=== PATIENT | female | born 1985 | race Caucasian/White ===

== ENCOUNTER 2025-01-04 10:18 | Outpatient (AMB) | payer OTHER, SELFPAY ==
--- NOTE | 2025-01-04 10:21 | A.OFFPC_ITS ---
Vital Signs 01/04/25 10:29 Height 5 ft 6.93 in Weight 171 lb 4 oz BMI 26.9 BP 114/86 Blood Pressure Location Rt brachial Position Sitting Respiration 16 Pulse 64 Pulse Source Pulse Oximeter Temp 98 F Temp Source Oral Pulse Oximetry (%) 98 Oxygen Delivery Method Room Air Intake Visit Reasons: Dermatologic condition- Referral Spot on Skin Intake Note: establish care and have a spot on nail and its getting bigger and left thumb. Penetration Tester Required: No Accompanied by: Self / Same As Patient Allergies No Known Allergies Allergy (Verified 01/04/25 10:21) Medication List - Last Reconciled 01/04/25 by Aris Stanford MD No Known Home Meds Tobacco use date assessed: 01/04/25 Dental Screening Dental Screen Date: 01/04/25 Did you have a dental visit in the last 12 months?: Yes Did you have a dental problem in the last 6 months where you did not have access to dental care?: No Was dental information given to patient?: Patient has dentist HPI HPI Comments History of Present Illness Details History of Present Illness The patient is a 39-year-old female presenting with nail discoloration. Nail Discoloration: - The patient noticed a spot on her nail that has been growing and changing, causing concern. - There is no known family history of sk in cancer, although the patient's mother's side is described as sickly. - The patient has not visited a doctor i n a long time and is anxious about the nail changes. Hip Pain: - The patient reports hip pain that occu rs when sitting in certain positions, described as a tightness. - The pain has been present for about a year and has worsened over time. - The patient has attempted stretching e xercises without relief. Menstrual Irregularities: - The patient reports increased spotting before menstruation and suspects perimenopause. - Menstrual flow varies, with some month s being heavier than others. Health Maintenance - Blood tests: CBC, CMP, lipid panel, ST D screening, hepatitis B and C screen, HIV screen - Cervical cancer screening: Pap smear r ecommended every five years Review of Systems - Dermatological: Reports nail discolora tion - Musculoskeletal: Reports hip pain when sitting in certain positions - Reproductive: Reports increased spotti ng before menstruation, denies heavy bleeding 10-point ROS reviewed and negative excep t as noted in HPI Current Substance Use - Denies smoking and alcohol use Family History - No known family history of skin cancer - No known family history of breast or c olon cancer Social History - Marital status: since 2012 - Children: Two daughters, ages 11 and 1 3 Physical Exam General: No apparent distress. Alert and oriented x 3. Head: Normocephalic, atraumatic Eyes: Pupils equal, round, and reactive to light. Extraocular movements intact Throat: Oropharynx clear. No lesions. ropharynx clear. Mucus membranes moist Neck: Supple. No lymphadenopathy. eft anterior descending artery distention. No jugular vein distention. No bruit. Cardiovascular: Regular rate and rhythm. Normal S1 and S2. No murmurs. murmurs, rubs, or gallops Lungs: Clear to auscultation bilaterally. Breath sounds equal bilaterally. No rales, ronchi, or wheezes. Abdomen: Non-tender. Non-distended. Bowel sounds auscultated. No masses. hepatosplenomegaly. No mass/rebound/guarding Extremities: No cyanosis, clubbing, or edema.clubbing, cyanosis, and edema. 2+ pulses Neuro: Cranial nerves II-XII grossly intact. Motor/sensory intact. Reflexes 2+. Gait normal. Skin: Warm, dry, and intact. No rash. Noted discoloration on the nail. Discussion Notes I discussed the patient's nail discoloration and the potential causes, including mineral deficiencies. I recommended a referral to dermatology for further evaluation. We also discussed the importance of routine blood tests and cervical cancer screening. The patient was advised to follow up with the technician's helper and to consider a Pap smear for cervical cancer screening. Plan 1. Other nail disorders L60.8 - Referral to dermatology for further ev aluation of nail discoloration. - Blood tests to check for mineral defic iencies, including CBC, CMP, and calcium levels. 2. Pain in right hip M25.551 - Provided literature on stretching exer cises to alleviate hip pain. 3. Irregular menstruation, unspecified N92.6 - Discussed the possibility of perimenop ause and advised monitoring symptoms. Treatment Summary Anticapatory Guidance Patient Instructions - Follow up with the technician's helper for n ail discoloration evaluation. - Complete the recommended blood tests, including CBC, CMP, and calcium levels. - Consider scheduling a Pap smear for ce rvical cancer screening. - Review and practice the provided stret kilo exercises for hip pain relief. [facility] Family History (Updated 01/04/25 @ 10:29 by Courtney Hope MA) Father No problems noted. Mother No problems noted. Social History (Updated 01/04/25 @ 10:29 by Courtney Hope MA) Housing: House Alcohol intake: current Alcohol intake frequency: does not drink Patient Tobacco Use Status: Never used Tobacco service: No Current occupational status: employed Cognitive needs: No Hearing needs: No Vision needs: Yes (rx glasses/ contacts) Questionnaire PHQ-9 Over the last 2 weeks, how often have you been bothered by any of the following problems? 1. Little interest or pleasure in doing things: not at all 2. Feeling down, depressed, or hopeless: not at all 3. Trouble falling or staying asleep, or sleeping too much: several days 4. Feeling tired or having little energy: several days 5. Poor appetite or overeating: not at all 6. Feeling bad about yourself - or that you are a failure or have let yourself or your family down: not at all 7. Trouble concentrating on things, such as reading the newspaper or watching television: not at all 8. Moving or speaking so slowly that other people could have noticed. Or the opposite - being so fidgety or restless that you have been moving around a lot more than usual: not at all 9. Thoughts that you would be better off or of hurting yourself in some way: not at all Total score: 2 Source: Developed by Drs. Laureano Brown, Soco Villanueva, Jerry Nichols and colleagues, with an educational keisha from [employer]. Thrive Questionnaire Date Thrive assessed: 01/04/25 I am a: Patient What is your living situation today?: I have a steady place to live Within the past 12 months, did the food you bought not last and you didn't have the money to get more?: Never true Within the past 12 months, did you worry whether your food would run out before you got money to buy more?: Never true Do you have trouble paying for medicines?: No Do you have trouble getting transportation to medical appointments?: No Do you have trouble paying your heating and electricity bill?: No Do you have trouble taking care of your child, family member or friend?: No Do you have trouble with day-to-day activities such as bathing, preparing meals, shopping, managing finances, etc.?: No Are you currently unemployed and looking for a job?: No Are you interested in more education?: No Please select the resources that you would like help with: None Currently or been in a relationship where the following occur: No concerns reported THRIVE Score: 0 AUDIT C Alcohol Use Questionnaire (AUDIT-C) 1. How often do you have a drink containing alcohol?: Never 3. How often do you have six or more drinks on one occasion?: Never Total Score: 0 LULA-7 AMB Questionnaire LULA-7 Date LULA - 7 assessed: 01/04/25 Feeling nervous, anxious, or on edge: 0 = Not at all Not being able to stop or control worryin = Not at all Worrying too much about different things: 1 = Several days Trouble relaxin = Not at all Being so restless that it is hard to sit still: 0 = Not at all Becoming easily annoyed or irritable: 1 = Several days Feeling afraid as if something awful might happen: 0 = Not at all Total LULA-7 score (0-4 normal; 5-9 mild; 10-14 moderate; 15-21 severe): 2 Source: Developed by Drs. Laureano Brown, Soco Villanueva, Jerry Nichols and colleagues, with an educational keisha from [employer]. Physical exam (Primary Care) Vital Signs: Last Vital Signs Temp 98 F 01/04/25 10:29 Pulse 64 01/04/25 10:29 Resp 16 01/04/25 10:29 BP 114/86 01/04/25 10:29 Pulse Ox 98 01/04/25 10:29 Oxygen Delivery Method Room Air 01/04/25 10:29 BMI result Body Mass Index 26.9 Tobacco/Smoking Status: Tobacco use Status Tobacco use date assessed 01/04/25 01/04/25 10:34 Patient Tobacco Use Status Never used Tobacco 01/04/25 10:34 PHQ-9: PHQ-9 Score PHQ-9: Total score 2 01/04/25 10:34 Thrive Assessment: Date of Thrive Assessment Date Thrive assessed 01/04/25 01/04/25 10:34 Currently or been in a relationship where the following occur: No concerns reported Coding Level of Care Code New Pt Level 3 (83976) Diagnoses Encounter to establish care Z76. Routine lab draw Z01.89 Hypertension screen Z13.6 Screening for HIV (human immunodeficiency virus) Z11.4 Routine screening for STI (sexually transmitted infection) Z11.3 Screening for diabetes mellitus Z13.1 Screening for lipoid disorders Z13.220 Overweight (BMI 25.0-29.9) E66.3 Nail abnormality L60.9 Assessment & Plan Assessment & Plan (1) Encounter to establish care: Code(s): Z76.89 - Persons encountering health services in other specified circumstances (2) Routine lab draw: Code(s): Z01.89 - Encounter for other specified special examinations (3) Hypertension screen: Code(s): Z13.6 - Encounter for screening for cardiovascular disorders (4) Screening for HIV (human immunodeficiency virus): Code(s): Z11.4 - Encounter for screening for human immunodeficiency virus [HIV] (5) Routine screening for STI (sexually transmitted infection): Code(s): Z11.3 - Encounter for screening for infections with a predominantly sexual mode of transmission (6) Screening for diabetes mellitus: Code(s): Z13.1 - Encounter for screening for diabetes mellitus (7) Screening for lipoid disorders: Code(s): Z13.220 - Encounter for screening for lipoid disorders (8) Overweight (BMI 25.0-29.9): Code(s): E66.3 - Overweight (9) Nail abnormality: Code(s): L60.9 - Nail disorder, unspecified Plan Orders: Orders Complete Blood Count Auto Diff Today Z76. - Persons encountering health services in other specified circumstances Comprehensive Met. Panel Today Z76. - Persons encountering health services in other specified circumstances Hemoglobin A1c Today 76. - Persons encountering health services in other specified circumstances Hepatitis B Surface Antigen Today . - Persons encountering health services in other specified circumstances Chlamydia Species Ab Panel Today . - Persons encountering health services in other specified circumstances CT NG by PCR Urine Today Z. - Persons encountering health services in other specified circumstances Syphilis Screen Today . - Persons encountering health services in other specified circumstances Vitamin B12 and Folate Today Z76.89 - Persons encountering health services in other specified circumstances Hepatitis B Surface Antibody Today Z76.89 - Persons encountering health services in other specified circumstances Hepatitis C Antibody Today Z76.89 - Persons encountering health services in other specified circumstances HIV Ab/Ag Today Z76.89 - Persons encountering health services in other spec ified circumstances Lipid Panel Today Z76.89 - Persons encountering health services in other specified circumstances UA CC w/rflx Micro + Cult Today Z76.89 - Persons encountering health services in other specified circumstances Vitamin D 1,25 dihydroxy Today Z76.89 - Persons encountering health services in other specified circumstances Referrals Dermatology Referral L60.9 - Nail disorder, unspecified
[2025-01-04 10:29] VITALS: BP 114/86; PULSE 64; RESP 16; TEMP 36.6; O2SAT 98; BMI 26.9
--- OUTSIDE RECORDS SUMMARY | 2025-01-04 11:45 | XMS_ITS | Patient Health Record ---
Author Organization [facility] Address [address] [place] [address] Care Team Providers Care Pharmaceutical Physician Name Role Phone Krysten Coker Unavailable [phone] Reason For Referral No Information Social History Tobacco Use: Social History Observation Description Date Details (start date - stop date) Former Smoker NA - NA Tobacco Use/Smoking Question Answer Notes Are you a former smoker How long has it been since you last smoked? 1-5 years Alcohol Screen (Audit-C) Question Answer Notes Did you have a drink containing alcohol in the p ast year? No Points 0 Interpretation Negative Plan Of Treatment No Information Insurance Providers Payer Name Payer Address Payer Phone Subscriber Number Group Number Insured Name Patient Relationship to Insured Coverage Start Date Coverage End Date [facility] [address] [place] [address] [id number] JENNIE GARCIA Self - patient is the insured Medical (General) History Surgical History Surgery Date(Month/Year) Hospitalization History Reason Date(Month/Year) Childbirth
== END 2025-01-04 11:00 | disposition home or self-care (01) ==
LOC: HO.HMCFMS 10:18
PROVIDERS: PCP Student in an Organized Health Care Education/Training Program; Visit Provider Student in an Organized Health Care Education/Training Program
DX: E66.3 Overweight (principal); L60.9 Nail disorder, unspecified

== ENCOUNTER 2025-01-04 10:18 | Outpatient (REF) | payer OTHER, SELFPAY ==
[2025-01-04 18:03] LABS: Appearance Urine Clear; Glucose Urine UA Negative (Negative); PH 6.5 (5.0-9.0); Specific Gravity - Urine <= 1.005 (1.005-1.025)
[2025-01-04 18:21] LABS: Hematocrit 42.0 % (37.0-47.0); Hemoglobin 14.2 g/dl (12.0-16.0); Imm Gran Abs Auto 0.01 X10*3/uL (0.00-0.03); Imm Gran Pct Auto 0.2 % (0.0-0.4); Lymphocytes Absolute Auto 1.8 X10*3/uL (1.2-4.9); MANUAL DIFF FLAG NO; Mean Corpuscular HGB Conc 33.8 g/dl (31.0-35.0); Mean Corpuscular Hemoglobin 31.8 pg (27.0-33.0); Mean Corpuscular Volume 94.0 fL (80.0-98.0); NRBC Abs Auto 0.000 X10*3/uL (0.0-0.012); NRBC Pct Auto 0.0 /100WBC (0.0-0.2); Platelet Count 250 X10*3/uL (160-400); Red Blood Count 4.47 X10*6/uL (4.20-5.50); White Blood Count 6.4 X10*3/uL (4.8-10.8)
[2025-01-04 18:37] LABS: Hemoglobin A1C 113.6609 umol/L
[2025-01-04 18:40] LABS: Alanine Aminotransferase 16 U/L (0-31); Albumin Level 4.9 g/dL (3.5-5.0); Alkaline Phosphatase 31 U/L (39-117); Anion Gap 13 (12-20); Aspartate Amino Transferase 33 U/L (5-31); Blood Urea Nitrogen 22 mg/dL (9-16); Calcium 9.5 mg/dL (8.4-10.2); Carbon Dioxide 25 mmol/L (22-29); Chloride 105 mmol/L (96-108); Cholesterol 188 mg/dL (<200); Estimated Glomerular Filt Rate > 60; HDL Cholesterol 73 mg/dL (>40); Potassium 4.4 mmol/L (3.3-5.1); Sodium 139 mmol/L (135-145); Total Protein 7.5 g/dL (6.5-8.0); Triglycerides 44 mg/dL (<150)
[2025-01-04 19:12] LABS: Folate 17.7 ng/mL (> or = 4.0); Vitamin B12 581 pg/mL (200-900)
[2025-01-04 23:20] LABS: CT PCR Urine NOT DETECTED (Not Detect.); NG PCR Urine NOT DETECTED (Not Detect.)
[2025-01-05 09:22] LABS: Syphilis Screen Nonreactive (Nonreactive)
[2025-01-05 09:50] LABS: HBS Num1 101.32 mIU/mL (0-7.99); HBsAGNum1 0.37 S/CO (0.00-0.99); HIV Num 1 0.04 S/CO (0.00-0.99); Hepatitis B Surface Antigen Negative (Negative); ~HepC Num1 0.06 S/CO (0.00-0.79); ~Hepatitis B Surface Antibody REACTIVE (Nonreactive); ~Hepatitis C Antibody Nonreactive (Nonreactive)
[2025-01-09 19:09] LABS: Chlamydia Trachomatis IgA <1:16 titer (<1:16)
[2025-01-14 11:58] LABS: VITAMIN D (1,25 OH) D3 58 pg/mL; Vit D (1,25-Dihydroxy) Total 58 pg/mL (18-72); Vitamin D (1,25 OH) D2 <8 pg/mL
== END 2025-01-04 10:19 | disposition home or self-care (01) ==
LOC: HO.HKASLDS 10:18
PROVIDERS: Visit Provider Student in an Organized Health Care Education/Training Program
DX: Z76.89 Persons encountering health services in other specified circumstances (principal); Z01.89 Encounter for other specified special examinations; Z13.6 Encounter for screening for cardiovascular disorders; Z11.4 Encounter for screening for human immunodeficiency virus [HIV]; Z11.3 Encounter for screening for infections with a predominantly sexual mode of transmission; Z13.1 Encounter for screening for diabetes mellitus; Z13.220 Encounter for screening for lipoid disorders; E66.3 Overweight; L60.9 Nail disorder, unspecified; Z68.26 Body mass index [BMI] 26.0-26.9, adult
CPT/HCPCS: 80053; 80061; 81003; 82607; 82652; 82746; 83036; 85025; 86631; 86632; 86706; 86780; 86803; 87340; 87389; 87491; 87591; 99202

== ENCOUNTER 2025-02-05 08:35 | Outpatient (AMB) | payer OTHER, SELFPAY ==
--- NOTE | 2025-02-05 08:40 | MHC.PC.OV ---
Vital Signs 02/05/25 08:41 Height 5 ft 6.93 in Weight 168 lb BMI 26.4 BP 134/67 Blood Pressure Location Rt brachial Position Sitting Pulse 68 Pulse Source Pulse Oximeter Temp 98.1 F Temp Source Oral Pulse Oximetry (%) 97 Oxygen Delivery Method Room Air Intake Visit Reasons: Gynecological issues Intake Note: establish care and have a spot on nail and its getting bigger and left thumb. Electronic Masking System Operator Required: No Accompanied by: Self / Same As Patient Allergies No Known Allergies Allergy (Verified 02/05/25 08:42) Tobacco use date assessed: 02/05/25 Dental Screening Dental Screen Date: 02/05/25 Did you have a dental visit in the last 12 months?: Yes Did you have a dental problem in the last 6 months where you did not have access to dental care?: No Was dental information given to patient?: Patient has dentist HPI HPI Comments History of Present Illness Details Consent Patient was informed and verbally consented to the use of an ambient scribe for clinic note documentation during this visit. History of Present Illness The patient is a 39-year-old female presenting with irregular uterine bleeding, pelvic pain, and bleeding post-coitus. Irregular uterine bleeding: - The patient reports irregular bleeding and spotting for about a year, with increased severity this month. - Bleeding occurs after sexual intercourse and when straining during bowel movements. - No significant bleeding during daily activities, but noticeable when wiping after using the bathroom. Pelvic pain: - The patient experiences consistent right-sided pelvic pain, exacerbated by movement or sneezing. - Pain intensity reaches 7-8 out of 10 during menstruation, which is atypical for the patient. - Pain occasionally radiates to the leg, causing a pins and needles sensation. Bleeding post-coitus: - The patient reports bleeding after sexual intercourse, which is a new symptom this month. Review of Systems - Genitourinary: Reports irregular uterine bleeding, pelvic pain, and bleeding post-coitus. Denies hematuria. - Neurological: Reports intermittent pins and needles sensation in the leg. 10-point ROS reviewed and negative except as noted in HPI Past Medical History - Family history of cervical or ovarian cancer in a first cousin. Health Maintenance - Referral for transvaginal ultrasound to evaluate irregular bleeding and pelvic pain. - Attempt to expedite PRODUCT SAFETY MANAGER appointment for further evaluation. Physical Exam General: Well-appearing, in no acute distress. Vital signs: Within normal limits. HEENT: Normocephalic, atraumatic. PERRLA, EOMI. Conjunctiva clear, sclera anicteric. Oropharynx clear, mucous membranes moist. TMs intact bilaterally. Neck: Supple, no lymphadenopathy, no thyromegaly, no JVD or carotid bruits. Cardiovascular: RRR, normal S1/S2, no murmurs, rubs, or gallops. Peripheral pulses 2+ and symmetric. No edema. Respiratory: Lungs clear to auscultation bilaterally, no wheezes, rales, or rhonchi. Normal effort. Abdomen: Soft, non-tender, non-distended. Normoactive bowel sounds. No hepatosplenomegaly, no masses. MSK: Full range of motion, no joint swelling or deformity. Normal gait. Skin: Warm, dry, intact. No rashes, lesions, or pallor. Neuro: Alert and oriented x3. Cranial nerves II-XII intact. Strength 5/5 throughout. Sensation intact. Reflexes 2+ symmetric. Normal coordination and gait. Psych: Appropriate mood and affect. Normal judgment and insight. Plan 1. Irregular Uterine Bleeding - Plan to perform a transvaginal ultrasound to assess the cause of bleeding. - Expedite PRODUCT SAFETY MANAGER appointment for further evaluation and management. 2. Pelvic Pain - Prescribed ibuprofen 800 mg for pain management, with instructions to use warm compresses. - Plan to perform a transvaginal ultrasound to investigate the cause of pain. 3. Bleeding Post-Coitus - Plan to perform a transvaginal ultrasound to evaluate the cause of post-coital bleeding. - Expedite PRODUCT SAFETY MANAGER appointment for further evaluation and management. Discussion Notes I discussed with the patient the need for a transvaginal ultrasound to evaluate the irregular bleeding and pelvic pain. We also talked about expediting her PRODUCT SAFETY MANAGER appointment to address these issues sooner. I explained the use of ibuprofen for pain management and advised on the use of warm compresses. We reviewed her lab results, which were mostly normal, except for slightly elevated liver enzymes, which were not concerning at this time. Patient Instructions - Take ibuprofen 800 mg as prescribed for pain, with food to avoid stomach upset. - Use warm compresses to alleviate pelvic pain. - Schedule and attend the transvaginal ultrasound as soon as possible. - Follow up with PRODUCT SAFETY MANAGER appointment and attempt to expedite if possible. Medical Decision Making The patient's symptoms of irregular uterine bleeding, pelvic pain, and bleeding post-coitus suggest a possible gynecological issue. The plan includes a transvaginal ultrasound to investigate structural causes and expedite an PRODUCT SAFETY MANAGER consultation. Ibuprofen is prescribed for pain management, considering the patient's reported pain severity. The normal lab results, except for slightly elevated liver enzymes, do not indicate an immediate concern, allowing focus on the gynecological evaluation. Total time spent caring for the patient today was 30 minutes. This includes time spent before the visit reviewing the chart, time spent documenting, and time spent reviewing laboratory results, diagnostic imaging, medications, performing a medically necessary evaluation, counseling on diagnoses, care coordination, ordering appropriate tests, ordering appropriate medications. [facility] Medical History (Updated 02/05/25 @ 09:16 by Aris Stanford MD) PCB (post coital bleeding) Menorrhagia Irregular menstruation, unspecified Family History Father No problems noted. Mother No problems noted. Social History Housing: House Alcohol intake: current Alcohol intake frequency: does not drink Patient Tobacco Use Status: Former Tobacco user service: No Current occupational status: employed Cognitive needs: No Hearing needs: No Vision needs: Yes (rx glasses/ contacts) Female Reproductive History Menstrual Date of last menstrual period: 01/30/25 control method: none Questionnaire PHQ-9 Over the last 2 weeks, how often have you been bothered by any of the following problems? 1. Little interest or pleasure in doing things: not at all 2. Feeling down, depressed, or hopeless: not at all 3. Trouble falling or staying asleep, or sleeping too much: several days 4. Feeling tired or having little energy: several days 5. Poor appetite or overeating: not at all 6. Feeling bad about yourself - or that you are a failure or have let yourself or your family down: not at all 7. Trouble concentrating on things, such as reading the newspaper or watching television: not at all 8. Moving or speaking so slowly that other people could have noticed. Or the opposite - being so fidgety or restless that you have been moving around a lot more than usual: not at all 9. Thoughts that you would be better off or of hurting yourself in some way: not at all Total score: 2 Source: Developed by Drs. Laureano Brown, Soco Villanueva, Jerry Nichols and colleagues, with an educational keisha from [employer]. Thrive Questionnaire Date Thrive assessed: 02/05/25 I am a: Patient What is your living situation today?: I have a steady place to live Within the past 12 months, did the food you bought not last and you didn't have the money to get more?: Never true Within the past 12 months, did you worry whether your food would run out before you got money to buy more?: Never true Do you have trouble paying for medicines?: No Do you have trouble getting transportation to medical appointments?: No Do you have trouble paying your heating and electricity bill?: No Do you have trouble taking care of your child, family member or friend?: No Do you have trouble with day-to-day activities such as bathing, preparing meals, shopping, managing finances, etc.?: No Are you currently unemployed and looking for a job?: No Are you interested in more education?: No Please select the resources that you would like help with: None Currently or been in a relationship where the following occur: No concerns reported THRIVE Score: 0 AUDIT C Alcohol Use Questionnaire (AUDIT-C) 1. How often do you have a drink containing alcohol?: Never 3. How often do you have six or more drinks on one occasion?: Never Total Score: 0 LULA-7 AMB Questionnaire LULA-7 Date LULA - 7 assessed: 02/05/25 Feeling nervous, anxious, or on edge: 0 = Not at all Not being able to stop or control worryin = Not at all Worrying too much about different things: 1 = Several days Trouble relaxin = Not at all Being so restless that it is hard to sit still: 0 = Not at all Becoming easily annoyed or irritable: 1 = Several days Feeling afraid as if something awful might happen: 0 = Not at all Total LULA-7 score (0-4 normal; 5-9 mild; 10-14 moderate; 15-21 severe): 2 Source: Developed by Drs. Laureano Brown, Soco Villanueva, Jerry Nichols and colleagues, with an educational keisha from [employer]. Physical exam (Primary Care) Tobacco/Smoking Status: Tobacco use Status Tobacco use date assessed 02/05/25 02/05/25 08:43 Patient Tobacco Use Status Never used Tobacco 02/05/25 08:41 PHQ-9: PHQ-9 Score PHQ-9: Total score 2 02/05/25 08:43 Thrive Assessment: Date of Thrive Assessment Date Thrive assessed 02/05/25 02/05/25 08:43 Currently or been in a relationship where the following occur: No concerns reported Coding Level of Care Code Est Pt Level 4 (68937) Diagnoses PCB (post coital bleeding) N93.0 Uterine bleeding N93.9 Pelvic pain R10.20 Elevated liver enzymes R74.8 Assessment & Plan Assessment & Plan (1) PCB (post coital bleeding): Code(s): N93.0 - Postcoital and contact bleeding Category: Medical (2) Uterine bleeding: Code(s): N93.9 - Abnormal uterine and vaginal bleeding, unspecified (3) Pelvic pain: Code(s): R10.20 - Pelvic and perineal pain unspecified side (4) Elevated liver enzymes: Code(s): R74.8 - Abnormal levels of other serum enzymes Plan Orders: Orders US pelvic and transvaginal Today N92.0 - Excessive and frequent menstruation with regular cycle, N92.6 - Irregular menstruation, unspecified Referrals PRODUCT SAFETY MANAGER Referral N92.0 - Excessive and frequent menstruation with regular cycle, N92.6 - Irregular menstruation, unspecified Medications: New ibuprofen 800 mg PO Q8H 30 tabs 0RF
[2025-02-05 08:41] VITALS: BP 134/67; PULSE 68; TEMP 36.7; O2SAT 97; BMI 26.4
--- OUTSIDE RECORDS SUMMARY | 2025-02-05 08:57 | XMS_ITS | Patient Health Record ---
Author Organization [facility] Address [address] [place] [address] Care Team Providers Care Manager Private Name Role Phone Krysten Coker Unavailable [phone] Reason For Referral No Information Social History [...] Insured Coverage Start Date Coverage End Date [facility] [address] [place] [address] [id number] JENNIE GARCIA Self - patient is the insured Medical (General) History Surgical History Surgery Date(Month/Year) Hospitalization History Reason Date(Month/Year) Childbirth
== END 2025-02-05 09:51 | disposition home or self-care (01) ==
LOC: HO.HMCFMS 08:36
PROVIDERS: PCP Student in an Organized Health Care Education/Training Program; Visit Provider Student in an Organized Health Care Education/Training Program
DX: N93.0 Postcoital and contact bleeding (principal); N93.9 Abnormal uterine and vaginal bleeding, unspecified; R10.20 Pelvic and perineal pain unspecified side; R74.8 Abnormal levels of other serum enzymes

== ENCOUNTER → 2025-02-05 08:35 | Outpatient (BNVA) | payer OTHER, SELFPAY | PROVIDERS: PCP Student in an Organized Health Care Education/Training Program; Visit Provider Student in an Organized Health Care Education/Training Program | DX: N93.0 Postcoital and contact bleeding (principal); N93.9 Abnormal uterine and vaginal bleeding, unspecified; R10.20 Pelvic and perineal pain unspecified side; R74.8 Abnormal levels of other serum enzymes; N92.0 Excessive and frequent menstruation with regular cycle; N92.6 Irregular menstruation, unspecified; Z13.31 Encounter for screening for depression; Z13.39 Encounter for screening examination for other mental health and behavioral disorders | CPT/HCPCS: 99212 ==

== ENCOUNTER 2025-02-06 14:13 | Outpatient (REF) | payer OTHER, SELFPAY ==
--- NOTE | ~2025-02-06 | US_ITS ---
EXAMINATION: US PELVIS CLINICAL INFORMATION: Irregular menstruation. N92.6. COMPARISON: None available. TECHNIQUE: Ultrasound of the pelvis is performed using both transabdominal and transvaginal transducers along with Doppler. Transvaginal imaging is performed due to inadequate visualization transabdominally. FINDINGS: Uterus: The uterus is in retroversion flexion and measures 11 x 6 x 6 cm. Volume: 194 cc. The double wall endometrial thickness is 7 mm. The uterus is smooth in contour and has normal myometrial echogenicity. No visible fibroid. Probable nabothian cysts. Adnexa: The ovaries are identified with flow on color Doppler interrogation.. There is no pelvic ascites or fluid collection. No free fluid in the cul-de-sac. Right ovary measures 5 x 2 x 2 cm. Volume: 11 cc. Scattered follicles. There is a 1.6 cm dominant follicle. Left ovary measures 4 x 2 x 3 cm. Volume: 18 cc. Scattered follicles. Questionable punctate calcifications. No gross solid or cystic lesion. US/US pelvic and transvaginal IMPRESSION: No ovarian torsion. Uterus is in retroversion flexion position. Endometrial stripe, 7 mm. Electronically signed by: Edmond Trinh MD 02/06/2025 03:10 PM EDT
--- OUTSIDE RECORDS SUMMARY | 2025-02-06 17:59 | XMS_ITS | Patient Health Record ---
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
== END 2025-02-06 14:14 | disposition home or self-care (01) ==
LOC: HO.US 14:13
PROVIDERS: PCP Student in an Organized Health Care Education/Training Program; Visit Provider Student in an Organized Health Care Education/Training Program
DX: N92.6 Irregular menstruation, unspecified (principal); N92.0 Excessive and frequent menstruation with regular cycle
CPT/HCPCS: 76830; 76856

== ENCOUNTER → 2025-02-06 14:15 | Outpatient (BNV) | payer OTHER, SELFPAY | PROVIDERS: PCP Student in an Organized Health Care Education/Training Program; Visit Provider Radiology Diagnostic Radiology | DX: N92.6 Irregular menstruation, unspecified (principal); N83.01 Follicular cyst of right ovary; N83.02 Follicular cyst of left ovary | CPT/HCPCS: 76830; 76856 ==